=== PATIENT | female | born 1990 | race Caucasian/White ===

== ENCOUNTER 2017-08-10 08:00 | Inpatient (IN) ==
[2017-08-10] MEDS ORDERED: *HR* Nalbuphine 10 MG/ML AMPUL IVP PRN (08:16)
[2017-08-10] MEDS ORDERED: Naloxone 0.4 MG/ML INJ IVP PRN (08:16)
[2017-08-10] MEDS ORDERED: Metoclopramide 10 MG/2 ML VIAL IVP PRN (08:16)
[2017-08-10] MEDS ORDERED: Famotidine 20 MG/2 ML VIAL IVP PRN (08:16)
[2017-08-10] MEDS ORDERED: Oxytocin 20 units/ LR 1000 mL 20 UNIT/1,000 ML BAG IVC SCH ×2 (08:30→18:58)
[2017-08-10] MEDS ORDERED: Ringers Solution, Lactated 1,000 ML IVC SCH (08:30)
[2017-08-10 09:13] LABS: Basophils % 0.5 %; Eosinophils # 0.2 K/mcL (0.0-0.6); Hematocrit 34.2 % (35.3-44.9); Hemoglobin 11.2 g/dL (11.5-15.4); Immature Granulocytes % 0.5 % (0-4); Lymphocytes # 1.6 K/mcL (0.6-4.6); Lymphocytes % 17.9 %; Mean Corpuscular HGB Conc 32.7 g/dL (31.6-35.5); Mean Corpuscular Hemoglobin 25.9 pg (28.0-33.3); Mean Corpuscular Volume 79.2 fL (83.0-100.0); Mean Platelet Volume 10.3 fL (9.4-12.4); Monocytes # 0.8 K/mcL (0.0-1.3); Monocytes % 9.5 %; Platelet Count 221 K/mcL (140-400); Red Blood Count 4.32 M/mcL (3.82-4.97); Red Cell Distribution Width 14.7 % (11.5-14.5); Segmented Neutrophils % 69.6 %
--- NOTE | 2017-08-10 10:27 | OB/GYN History & Physical ---
Date of Encounter: 08/10/17 Time of Encounter: 10:22 Assessment and Plan (1) 40 weeks gestation of Current visit: Yes Status: Acute (2) Elective induction of labor planned Current visit: No Status: Acute Admit to labor and delivery Start Pitocin per policy Nubain and epidural as desired Anticipate History of Present Illness Chief complaint: induction of labor HPI: Ms. Tuttle is a 27 year old female 40+0 presents for induction of labor due to term . Uncomplicated course. Patient on daily baby aspirin for history of miscarriage. Reports good movement, denies vaginal bleeding, leaking of fluid, contractions. Unsure if wants epidural Labs: O+, rubella and varicella immune, GBS negative, all other serologies negative Past Med Surg Social Fam HX - Past Medical History Medical history: no medical history Psychiatric history: no psych history - Past Surgical History Surgical History: other - Social History Smoking Status: Never smoker Smokeless Tobacco Status: No Alcohol use: none Drug use: none - Family History Father Living Status: Still Living Hx Family Medical Disorders: Yes (melanoma) Mother Family Member Ethnicity: Non- Living Status: Still Living Hx Family Cardiac Disorders: No Hx Family Respiratory Disorders: No Hx Family Cancer: No Hx Family GI Disorders: No Hx Family Endocrine Disorder: No Hx Family Neuromuscular Disorders: No Hx Family Neurologic Disorders: No Hx Family HEENT Disorders: No Hx Family Autoimmune Disorders: No Obstetrical History - Pregnancies : 7 Para: 2 Term: 2 : 0 Ab's: 4 Livin Medications and Allergies Aspirin 81 mg PO DAILY 08/02/15 [History] Pnv Plus Multivit Tab 1 tab PO DAILY 08/02/15 [History] 3 Allergy/AdvReac Type Severity Reaction Status Date / Time bacitracin Allergy Rash Verified 11/10/15 09:26 [From Neosporin ([id number])] Neomycin Allergy Rash Verified 11/10/15 09:26 [From Neosporin ([id number])] polymyxin B Allergy Rash Verified 11/10/15 09:26 [From Neosporin ([id number])] Exam - Constitutional Constitutional: well developed, well nourished, no acute distress, average body habitus - Neck Neck exam: full ROM - Lungs Respiratory exam: CTAB - Cardiovascular Cardiovascular exam: RRR - Abdomen Abdomen: Present: gravid, non tender - Extremities Extremities exam: normal capillary refill, normal inspection - Cervix Dilation: 4 Effacement: 90 Station: -1 - Uterus Uterus exam: Present: normal size, normal contour Results Result Diagrams: 08/10/17 08:51 Abnormal lab results Hgb 11.2 g/dL (11.5-15.4) L 08/10/17 08:51 Hct 34.2 % (35.3-44.9) L 08/10/17 08:51 MCV 79.2 fL (83.0-100.0) L 08/10/17 08:51 MCH 25.9 pg (28.0-33.3) L 08/10/17 08:51 RDW 14.7 % (11.5-14.5) H 08/10/17 08:51 All other labs normal. - VTE Reasons for not Prescribing Prophylaxis: Treatment not Indicated - Low risk for VTE
--- NOTE | 2017-08-10 10:57 | Anesthesia Evaluation PreOp ---
Date of Encounter: 08/10/17 Time of Encounter: 10:55 - Past History Planned Operation: ANA Cardiac History: Denies any Significant Hx Pulmonary History: Denies Any Significant HX ANIMAL CARE SUPERVISOR History: Denies Any Significant HX Other Medical History: Denies Any Significant HX Anesthesia History: No Prior Anesthetic Complications (denies h/o NA or GA complications; denies family h/o GA), Past Anesthesia (had ANA w/ previous C/S.) : Yes Test: Positive Alcohol Use: none Drug use: none Medications and Allergies Aspirin 81 mg PO DAILY 08/02/15 [History] Pnv Plus Multivit Tab 1 tab PO DAILY 08/02/15 [History] 3 Allergy/AdvReac Type Severity Reaction Status Date / Time bacitracin Allergy Rash Verified 11/10/15 09:26 [From Neosporin ([id number])] Neomycin Allergy Rash Verified 11/10/15 09:26 [From Neosporin ([id number])] polymyxin B Allergy Rash Verified 11/10/15 09:26 [From Neosporin ([id number])] - Meds/Allergy Pre-op Review Medications Reviewed: Yes Allergies Reviewed: Yes Beta Blockers on Current Med List: No Anesthesia Results - Labs 08/10/17 08:51 Anesthesia Exam O2 Sat Height 1.6 m Height 1.6 m Weight 76.204 kg Weight 76.204 kg NPO (# of Hours): solids > 4 hours Pain Scale: 0 Pain Scale Used: Tesha (Faces) - HEENT Pupil (Motor): Pupils equal Mallampati: II Teeth: Normal Oral Opening: Greater than 3 - ANIMAL CARE SUPERVISOR LOC: Oriented ANIMAL CARE SUPERVISOR Motor: Normal RUE, Normal LUE, Normal RLE, Normal LLE, Normal Face ANIMAL CARE SUPERVISOR Sensory: Normal: RUE, LUE, RLE, LLE, Face - Cardiac Rhythm: Regular Murmur: None - Pulmonary Breath Sounds: bilateral Clear Respiratory Effort: Symmetrical Anesthesia Assess/Plan ASA Score: 2 Modified Dipti Scale for Level of Consciousness: Cooperative, oriented, and tranquil Anesthetic Plan: Regional Autologous Blood: No Monitoring Plan: Standard Monitors Recovery Plan: Other
[2017-08-10] MEDS ORDERED: Bupivacaine-MPF 0.25% 10 ML VIAL EP ONE (11:02)
[2017-08-10] MEDS ORDERED: *HR* FentaNYL (PF) 100 MCG/2 ML VIAL EP ONE (11:02)
[2017-08-10] MEDS ORDERED: Epidural Premix (fent/bupiv) 110 ML EP SCH (11:15)
[2017-08-10] MEDS ORDERED: *HR* FentaNYL (PF) 100 MCG/2 ML VIAL ONE (12:39)
[2017-08-10] MEDS ORDERED: Bupivacaine-MPF 0.25% 10 ML VIAL ONE (12:39)
[2017-08-10] MEDS ORDERED: Epidural Premix (fent/bupiv) 110 ML EP ONE (12:43)
--- NOTE | 2017-08-10 13:14 | Anesthesia Procedures ---
Date of Encounter: 08/10/17 Time of Encounter: 13:11 Procedures: Anesthesia - Epidural/Spinal Patient ID/Chart reviewed: Yes Patient examined: Yes OB Eval: Gestational age: 40 weeks OB Eval: : 7 OB Eval: Hx Para: 2 OB Eval: Dilated at (cm): 4 OB Eval: Contractions: Non-stressed pattern Consent Obtained: Yes Supplemental Oxygen: None/Room Air Site Prep: Aseptic Technique, Sterile prep and drape, Povidone-Iodine 1% Patient position: upright Local Anesthetic: Lidocaine 1% Amount of Local Anesthetic used: 3 Touhy Needle Gauge: 18 Touhy Needle Depth (cm): 4 Catheter Depth at Skin (cm): 9 Test Dose (1.5% Lido + Epi): Volume given (mls): 5 Test Dose Result: Negative Loading Dose: 0.25% Marcaine (mls): 5 Loading Dose: Fentanyl (mcg): 100 Loading Dose Administered: Thru Catheter Infusion Med: 0.125% Bupivacaine w/ 2 mcg/ml Fentanyl Infusion Rate (mls/hr): 14 (given in 2 divided doses over a period of 5 min) Catheter Secured in Place: Tegaderm, Tape Interspace Used: L3-L4 Loss of Resistance (PHYLICIA): Yes Blood: No CSF: No Paresthesia: No Procedure: successful on 1st attempt. pt tolerated well Vitals + FHT's: please see Sue LISA's electronic records for VS entry
--- NOTE | 2017-08-10 14:17 | OB Labor Progress Note ---
Date of Encounter: 08/10/17 Time of Encounter: 14:16 Labor Progress Note - Subjective Subjective: Pt comfortable with epidural - Cervix Cervix: 6/100/-1 - Heart Tones Heart Tones: 125/moderate/+accels/-decels - [employer]: q2-3 - Interventions Interventions: AROM for clear fluid - Plan Plan: Continue pitocin per policy Frequent repositioning anticipate
--- NOTE | 2017-08-10 15:22 | OB/GYN Procedure Note ---
Delivery - Delivery Date: 08/10/17 Provider: Jia Pool Intrapartum events: none Delivery induction: AROM, oxytocin Delivery monitor: external FHT, external uterine Anesthesia: epidural Estimated Blood Loss: 300 - (s) A Delivery Date: 08/10/17 Infant Delivery Time: 15:05 Presentation: vertex Position: OA Route of delivery: Gender: Male Viability: Viable Pounds: 8 Ounces: 6 Weight Gram: 3800 kg at 1 minute: 2 at 5 mins: 9 Shoulder Dystocia: not encountered Specimens collected: cord blood, venous cord gases, arterial cord gases Placenta: spontaneous Cord: nuchal cord - Repair Episiotomy: none Laceration Description: None - Complications Delivery complications: none Delivery comments: Induction of labor for term gestation, progressed to complete, maternal bearing down efforts to of liveborn male. Vertex delivered OA, nuchal cord identified in reduced, shoulders and body easily followed. No shoulder dystocia encountered. Limp infant placed on maternal abdomen, cord clamped and cut and taken to radiant warmer for resuscitative measures. Apgars 2/9. Cord gases obtained Placenta delivered spontaneously (Taj), fundus massaged until firm, Pitocin started per policy perineum intact. EBL 300. There and infant left bonding in labor and delivery in stable condition - Disposition Mom disposition: stable in LDR Kempner disposition: stable in LDR
[2017-08-10] MEDS ORDERED: Lanolin 7 G OINT...G. TP PRN (18:58)
[2017-08-10] MEDS ORDERED: Acetaminophen 325 MG TABLET PO PRN (18:58)
[2017-08-10] MEDS ORDERED: Benzocaine/Menthol 56 GM AEROSOL SPRAY TP PRN (18:58)
[2017-08-11] MEDS: Ibuprofen 600 MG TABLET PO PRN ×2 (01:39→10:06)
[2017-08-11 04:36] LABS: Basophils # 0.1 K/mcL (0.0-0.2); Basophils % 0.4 %; Eosinophils # 0.2 K/mcL (0.0-0.6); Eosinophils % 1.5 %; Hematocrit 36.8 % (35.3-44.9); Hemoglobin 11.4 g/dL (11.5-15.4); Immature Granulocytes % 0.6 % (0-4); Lymphocytes # 1.9 K/mcL (0.6-4.6); Lymphocytes % 13.5 %; Mean Corpuscular Hemoglobin 25.1 pg (28.0-33.3); Mean Corpuscular Volume 80.9 fL (83.0-100.0); Mean Platelet Volume 10.7 fL (9.4-12.4); Monocytes # 1.4 K/mcL (0.0-1.3); Neutrophils # 10.5 K/mcL (1.6-8.9); Platelet Count 224 K/mcL (140-400); Red Blood Count 4.55 M/mcL (3.82-4.97); Red Cell Distribution Width 14.9 % (11.5-14.5)
[2017-08-11 08:09] VITALS: BP 118/78
[2017-08-11] MEDS ORDERED: Prenatal Vit/FA 1 EACH TABLET PO SCH (09:00)
--- NOTE | 2017-08-11 09:49 | Discharge Summary ---
Date of Encounter: 08/11/17 Time of Encounter: 09:44 - Discharge Diagnosis (1) Vaginal delivery Priority: Primary Status: Acute Comments: S/P vaginal delivery Day 1.Pain well controlled with po meds. Ambulating and voiding without difficulty. Tolerating regular diet. Passing gas, states had small BM with no problem. Reports small hemorrhoid that is effectively treated with cream at home. Infant in room, reports well. Lochia light, without clots. Desires to go home today - Discharge Medications Prescriptions: Ibuprofen [Motrin] 600 mg PO Q6HR PRN #30 tablet PRN Reason: Cramping Docusate [Colace] 100 mg PO BID #20 capsule Ferrous Sulfate 325 mg PO DAILY #30 tablet Home Medications: Pnv Plus Multivit Tab 1 tab PO DAILY 08/02/15 [History] Acetaminophen [Tylenol] 650 mg PO Q6HR PRN tablet 08/11/17 [Rx] Benzocaine/Menthol Bennett [Dermoplast Bennett] 1 appl TP QID PRN aerosol 08/11/17 [Rx] Docusate [Colace] 100 mg PO BID #20 capsule 08/11/17 [Rx] Ferrous Sulfate 325 mg PO DAILY #30 tablet 08/11/17 [Rx] Ibuprofen [Motrin] 600 mg PO Q6HR PRN #30 tablet 08/11/17 [Rx] Lanolin [Lansinoh] 1 appl TP QID PRN oint...g. 08/11/17 [Rx] Allergies/Adverse Reactions: 3 Allergy/AdvReac Type Severity Reaction Status Date / Time bacitracin Allergy Rash Verified 11/10/15 09:26 [From Neosporin ([id number])] Neomycin Allergy Rash Verified 11/10/15 09:26 [From Neosporin ([id number])] polymyxin B Allergy Rash Verified 11/10/15 09:26 [From Neosporin ([id number])] Data Procedures and tests throughout hospitalization: Laboratory Tests 08/10/17 08/11/17 08:51 04:16 WBC 8.7 14.2 H D RBC 4.32 4.55 Hgb 11.2 L 11.4 L Hct 34.2 L 36.8 MCV 79.2 L 80.9 L MCH 25.9 L 25.1 L MCHC 32.7 31.0 L RDW 14.7 H 14.9 H Plt Count 221 224 MPV 10.3 10.7 Immature Gran % 0.5 0.6 Seg Neutrophils % 69.6 74.0 Lymphocytes % 17.9 13.5 Monocytes % 9.5 10.0 Eosinophils % 2.0 1.5 Basophils % 0.5 0.4 Neutrophils # 6.0 10.5 H Lymphocytes # 1.6 1.9 Monocytes # 0.8 1.4 H Eosinophils # 0.2 0.2 Basophils # 0.0 0.1 Labs on day of discharge: Labs from last 24 hours 08/11/17 04:16 WBC 14.2 H D RBC 4.55 Hgb 11.4 L Hct 36.8 MCV 80.9 L MCH 25.1 L MCHC 31.0 L RDW 14.9 H Plt Count 224 MPV 10.7 Immature Gran % 0.6 Seg Neutrophils % 74.0 Lymphocytes % 13.5 Monocytes % 10.0 Eosinophils % 1.5 Basophils % 0.4 Neutrophils # 10.5 H Lymphocytes # 1.9 Monocytes # 1.4 H Eosinophils # 0.2 Basophils # 0.1 Date of admission: 08/10/17 08:09 Primary care physician: PCP NONE Consults: 08/10/17 18:58 Consult to Test Clerk [CONS] Routine Comment: Vaginal delivery, consult needed Discharging clinician: Sabrina Fernandez - Patient Status Disposition: Home, Self-Care Condition: Good Functional capacity at discharge: independent ambulation Overall status at discharge: patient is progressing back to baseline - Discharge Instructions Follow Up With: NONE,PCP [Primary Care Provider] - Sarah Burden MD [Partnered Physician] - - Diet and Activity Activity: resume usual activities as tolerated Diet: advance to your usual diet Hospital Course Episiotomy: none Time Attestation: Total time spent providing and/or coordinating discharge services: Exam - Constitutional Vitals: Temp Pulse Resp BP Pulse Ox 97.7 F 60 16 118/78 95 08/11/17 08:08 08/11/17 08:08 08/11/17 08:08 08/11/17 08:08 08/11/17 04:20 General appearance IM: cooperative, A&O X 3, pleasant, no acute distress, answers questions appropriately - Respiratory Respiratory exam: Present: CTAB - Cardiovascular Cardiovascular exam IM: Present: RRR - GI/Abdominal GI/Abdominal exam IM: normal bowel sounds, soft, tenderness - Rectal Rectal exam: deferred - Uterine Tone: Firm Uterus Position: 1 Finger Below Umbilicus, Midline - Neurological Exam Neurological exam: alert, normal gait, oriented X3
== END 2017-08-11 17:00 | disposition home or self-care (01) | DRG 775 ==
LOC: 1NENULAB 08:09 → 1NENUOBS 17:42
PROVIDERS: ADMIT Advanced Practice Midwife; ATTEND Advanced Practice Midwife

== ENCOUNTER 2018-08-29 10:18 | Observation (INO) ==
[2018-08-29] MEDS ORDERED: Famotidine 20 MG/2 ML VIAL IVP ONE (11:02)
[2018-08-29] MEDS ORDERED: Metoclopramide 10 MG/2 ML VIAL IVP ONE (11:03)
[2018-08-29] MEDS ORDERED: Ringers Solution, Lactated 1,000 ML ONE (11:12)
[2018-08-29] MEDS ORDERED: Ringers Solution, Lactated 1,000 ML IVC SCH ×2 (11:15→11:45)
[2018-08-29 11:17] LABS: Hematocrit 39.5 % (35.3-44.9); Hemoglobin 13.3 g/dL (11.5-15.4); Mean Corpuscular HGB Conc 33.7 g/dL (31.6-35.5); Mean Corpuscular Hemoglobin 28.4 pg (28.0-33.3); Mean Corpuscular Volume 84.2 fL (83.0-100.0); Mean Platelet Volume 9.8 fL (9.4-12.4); Platelet Count 247 K/mcL (140-400); Red Blood Count 4.69 M/mcL (3.82-4.97)
[2018-08-29 11:28] LABS: Amphetamine Screen,Urine Negative ng/mL (Cutoff=1000); Barbiturate Screen,Urine Negative ng/mL (Cutoff=200); Benzodiazepines Screen,Urine Negative ng/mL (Cutoff=200); Cannabinoid Screen,Urine Negative ng/mL (Cutoff = 50); Cocaine Screen,Urine Negative ng/mL (Cutoff= 300); Opiate Screen,Urine Negative ng/mL (Cutoff=300); Phencyclidine Screen,Urine Negative ng/mL (Cutoff=25)
[2018-08-29] MEDS ORDERED: *HR* HYDROmorphone (PF) 1 MG/ML SYRINGE IVP PRN (11:38)
[2018-08-29] MEDS ORDERED: Dexamethasone 4 MG/ML VIAL IVP ONE (11:38)
[2018-08-29] MEDS ORDERED: *HR* OxyCODONE Immed Rel 5 MG TABLET PO PRN (11:38)
[2018-08-29] MEDS ORDERED: Ondansetron 4 MG/2 ML VIAL IVP ONE (11:38)
[2018-08-29] MEDS ORDERED: *HR* Meperidine 25 MG/ML SYRINGE IVP PRN (11:38)
--- NOTE | 2018-08-29 11:41 | Anesthesia Evaluation PreOp ---
Date of Encounter: 08/29/18 Time of Encounter: 11:39 - Past History Planned Operation: D&C Cardiac History: Denies any Significant Hx Pulmonary History: Denies Any Significant HX FLOSSER History: Denies Any Significant HX Other Medical History: Denies Any Significant HX Anesthesia History: No Prior Anesthetic Complications (denies personal and family h/o GA complications), Past Anesthesia (D&C, ruptured ectopic ) : Yes Alcohol Use: none Drug use: none Medications and Allergies Pnv Plus Multivit Tab 1 tab PO DAILY 08/02/15 [History] Aspirin [Lo-Dose Aspirin EC] 81 mg PO DAILY 08/29/18 [History] Allergy/AdvReac Type Severity Reaction Status Date / Time bacitracin Allergy Rash Verified 11/10/15 09:26 [From Neosporin ([id number])] Neomycin Allergy Rash Verified 11/10/15 09:26 [From Neosporin ([id number]-[id number])] polymyxin B Allergy Rash Verified 11/10/15 09:26 [From Neosporin ([id number]-[id number])] - Meds/Allergy Pre-op Review Medications Reviewed: Yes Allergies Reviewed: Yes Beta Blockers on Current Med List: No Anesthesia Results - Labs 08/29/18 11:13 Anesthesia Exam 106/64, HR 83, RR 18 O2 Sat Height 1.6 m Weight 58.8 kg NPO (# of Hours): > 8hrs Pain Scale: 0 Pain Scale Used: Numeric (1 - 10) - HEENT Pupil (Motor): Pupils equal Mallampati: II Teeth: Normal Oral Opening: Greater than 3 - FLOSSER LOC: Oriented FLOSSER Motor: Normal RUE, Normal LUE, Normal RLE, Normal LLE, Normal Face FLOSSER Sensory: Normal: RUE, LUE, RLE, LLE, Face - Cardiac Rhythm: Regular Murmur: None - Pulmonary Breath Sounds: bilateral Clear Respiratory Effort: Symmetrical Anesthesia Assess/Plan ASA Score: 2 Level of consciousness: Cooperative, Oriented, Tranquil Anesthetic Plan: General Autologous Blood: No Monitoring Plan: Standard Monitors Recovery Plan: PACU
[2018-08-29] MEDS ORDERED: *HR* Midazolam HCl 2 MG/2 ML VIAL ONE (11:44)
[2018-08-29] MEDS ORDERED: Ondansetron 4 MG/2 ML VIAL ONE (11:44)
[2018-08-29] MEDS ORDERED: Dexamethasone 4 MG/ML VIAL ONE (11:44)
[2018-08-29] MEDS ORDERED: *HR* Propofol 200 MG/20 ML VIAL IVP ONE (11:44)
[2018-08-29] MEDS ORDERED: *HR* FentaNYL (PF) 100 MCG/2 ML VIAL ONE (11:44)
[2018-08-29] MEDS ORDERED: Lidocaine -MPF 2% 5 ML VIAL ONE (11:44)
--- NOTE | 2018-08-29 13:01 | History & Physical Report ---
Date of Encounter: 08/29/18 Time of Encounter: 13:00 24 Hour HP Update - Instructions Instructions: If the History and Physical is less than 30 days old and was completed prior to A.M. admission and or procedure and has NOT been updated on calendar day of procedure please complete this update prior to performing procedure. - Update Patient reports changes in Medical Condition: No Changes in examination, assessment, or condition: No Changes in Medication: No Preop tests/diagnostics Reviewed: Yes Pre-Op MRSA Screen: Negative Surgery Remains Indicated: Yes Consent for Planned Operative Procedure(s) Verified: Yes - Pre-Operative Checklist Preoperative Checklist Indicated: Yes Prophylactic Antibiotic Ordered: No Home Medications Include Beta Anthony: No Beta Anthony Taken Today (Day of Surgery): No Beta Anthony Taken Yesterday (Day Prior to Surgery): No Is VTE Prophylaxis Indicated?: Yes
[2018-08-29] MEDS ORDERED: Ketorolac 30 MG/ML VIAL ONE (13:31)
--- NOTE | 2018-08-29 13:33 | OB/GYN Procedure Note ---
Suction D&C - Diagnosis Date of procedure: 08/29/18 Pre-op diagnosis: missed Post-op diagnosis: same - Procedure Procedure: suction D&C Surgeon: Kiara Ramírez Was there an car rental sales assistant present: No Anesthesia provider: Jefry Rangel Anesthesia Type: General Estimated blood loss (cc): 50 Complications: none Specimen: products of conception Disposition: no change Narrative: Diagnosis: Missed 6 weeks 0 day Postoperative diagnosis: Same Surgeon: Dr. Kiara Ramírez Anesthesia: Gen. Complications: None Estimated blood loss 50 mL Specimens: Products of conception Patient was taken to the operating room and underwent general anesthesia. She has dropped and draped in usual sterile fashion. A weighted speculum was placed within the vaginal vault. Cervix is grasped with single-tooth tenaculum. Uterine cervix was sounded to 9 cm in size. Uterine cervix was gently dilated without difficulty. Intrauterine products of conception were gently removed using a combination of suction and sharp curettage. At the end of the procedure the uterine cry was noted throughout the uterine cavity. Uterus remained firm. Specimens were collected and sent to pathology. We have minimal blood loss. She was given intraoperative Methergine and Toradol. All instruments removed from the vaginal vault. Uterus was firm. Sponge lap needle and strength counts were correct 2. Patient was awakened taken to the postanesthesia care unit. Again we had no interoperative complications.
[2018-08-29 14:42] VITALS: BP 108/73
--- NOTE | 2018-08-29 15:01 | Anesthesia Evaluation Post Op ---
Date of Encounter: 08/29/18 Time of Encounter: 15:00 - Vital Signs Vital Signs: 100/70, HR 95, SpO2 96%, RR 20 - Lungs Lungs: Clear Ascult./Percussion - Airway Airway: Non-obstructed - Cardiovascular Regular Rate - Mental Status Mental Status: Alert & Oriented, Answers Appropriately - Pain Pain Scale: 2 Pain Scale used: Numeric (1 - 10) - Nausea Vomiting Nausea Vomiting: Not Present - Hydration Hydration: Tolerates oral liquids, Has not voided - Discharge PostOp Status: Discharge Patient to home
[2018-08-29] MEDS ORDERED: Methylergonovine 0.2 MG/ML AMPUL IM ONE (15:48)
[2018-08-30] MEDS ORDERED: Aspirin Enteric Coated 81 MG Tablet PO SCH (09:00)
[2018-08-30] MEDS ORDERED: Prenatal Vit/FA 1 EACH TABLET PO SCH (09:00)
== END 2018-08-29 15:49 | disposition home or self-care (01) ==
LOC: 1NENULAB 10:18 → SAMDAY 10:18
PROVIDERS: ADMIT Obstetrics & Gynecology; ATTEND Obstetrics & Gynecology

== ENCOUNTER 2019-10-23 18:00 | Observation (INO) ==
[2019-10-23 11:19] LABS: Basophils % 0.4 %; Eosinophils # 0.1 K/mcL (0.0-0.6); Eosinophils % 1.1 %; Hematocrit 33.4 % (35.3-44.9); Hemoglobin 11.1 g/dL (11.5-15.4); Immature Granulocytes % 1.1 % (0-4); Lymphocytes # 1.3 K/mcL (0.6-4.6); Lymphocytes % 14.9 %; Mean Corpuscular HGB Conc 33.2 g/dL (31.6-35.5); Mean Corpuscular Hemoglobin 28.1 pg (28.0-33.3); Mean Corpuscular Volume 84.6 fL (83.0-100.0); Mean Platelet Volume 10.1 fL (9.4-12.4); Monocytes # 0.9 K/mcL (0.0-1.3); Monocytes % 9.6 %; Neutrophils # 6.5 K/mcL (1.6-8.9); Platelet Count 194 K/mcL (140-400); Red Blood Count 3.95 M/mcL (3.82-4.97); Red Cell Distribution Width 13.6 % (11.5-14.5); Segmented Neutrophils % 72.9 %; White Blood Count 8.9 K/mcL (4.3-11.1)
[2019-10-23 11:26] LABS: Prothrombin Time 11.9 Seconds (9.4-12.1)
[2019-10-23 11:28] LABS: Activated Partial Thrombo Time 25.8 Seconds (26.0-36.0)
[2019-10-23 11:31] LABS: Bacteria,Urine Few per hpf (None-Few); Bilirubin,Urine Negative (Negative); Blood,Urine Moderate (Negative); Clarity,Urine Turbid (Clear); Color,Urine Light-Yellow (Yellow); Glucose,Urine (UA) Normal (Normal); Ketones,Urine Negative (Negative); Leukocyte Esterase,Urine Negative (Negative); Nitrite,Urine Negative (Negative); Protein,Urine Trace mg/dL (Neg-Trace); Specific Gravity,Urine 1.009 (1.010-1.025); Squamous Epithelial Cell,Urine Few per hpf (None-Few); Urobilinogen,Urine Normal (Normal)
[2019-10-23 12:06] VITALS: BP 117/75
[~2019-10-23 18:00] MED LIST: Ringers Solution, Lactated 1,000 ML IVC SCH
[2019-10-24 05:18] LABS: Basophils % 0.3 %; Eosinophils # 0.2 K/mcL (0.0-0.6); Eosinophils % 2.2 %; Hematocrit 31.7 % (35.3-44.9); Hemoglobin 10.4 g/dL (11.5-15.4); Immature Granulocytes % 1.1 % (0-4); Lymphocytes # 1.9 K/mcL (0.6-4.6); Lymphocytes % 21.6 %; Mean Corpuscular HGB Conc 32.8 g/dL (31.6-35.5); Mean Corpuscular Volume 88.3 fL (83.0-100.0); Mean Platelet Volume 10.5 fL (9.4-12.4); Monocytes # 0.9 K/mcL (0.0-1.3); Monocytes % 9.5 %; Neutrophils # 5.9 K/mcL (1.6-8.9); Platelet Count 190 K/mcL (140-400); Red Blood Count 3.59 M/mcL (3.82-4.97); Red Cell Distribution Width 13.9 % (11.5-14.5); Segmented Neutrophils % 65.3 %
== END 2019-10-24 09:30 | disposition home or self-care (01) ==
LOC: 1NENULAB
PROVIDERS: ADMIT Obstetrics & Gynecology; ATTEND Obstetrics & Gynecology

== ENCOUNTER 2019-12-27 10:43 | Inpatient (IN) ==
[~2019-12-27 10:43] MED LIST changes: +*HR* FentaNYL (PF) 100 MCG/2 ML VIAL IVP PRN; +Azithromycin 500 MG in 0.9 % Sodium Chloride 250 ML IVPB ONE; +Famotidine 20 MG/2 ML VIAL IVP PRN; +Metoclopramide 10 MG/2 ML VIAL IVP PRN; +Naloxone 0.4 MG/ML INJ IVP PRN; +Ondansetron 4 MG/2 ML VIAL IVP PRN; -Ringers Solution, Lactated 1,000 ML IVC SCH
[2019-12-27] MEDS ORDERED: FLU Vac QV HD 20-21 (65YR+)/PF 0.7 ML SYRINGE IM ONE (11:00)
[2019-12-27] MEDS ORDERED: Oxytocin 20 units/ LR 1000 mL 20 UNIT/1,000 ML BAG IVC SCH ×2 (11:15→22:40)
[2019-12-27 11:32] LABS: Basophils % 0.4 %; Eosinophils # 0.1 K/mcL (0.0-0.6); Eosinophils % 0.9 %; Hemoglobin 11.2 g/dL (11.5-15.4); Immature Granulocytes % 0.9 % (0-4); Lymphocytes % 18.7 %; Mean Corpuscular Volume 81.4 fL (83.0-100.0); Mean Platelet Volume 10.4 fL (9.4-12.4); Monocytes # 0.7 K/mcL (0.0-1.3); Monocytes % 12.4 %; Neutrophils # 3.6 K/mcL (1.6-8.9); Platelet Count 188 K/mcL (140-400); Red Cell Distribution Width 15.2 % (11.5-14.5); Segmented Neutrophils % 66.7 %; White Blood Count 5.3 K/mcL (4.3-11.1)
[2019-12-27 11:35] LABS: Amphetamine Screen,Urine Negative ng/mL (Cutoff=1000); Barbiturate Screen,Urine Negative ng/mL (Cutoff=200); Benzodiazepines Screen,Urine Negative ng/mL (Cutoff=200); Cannabinoid Screen,Urine Negative ng/mL (Cutoff = 50); Cocaine Screen,Urine Negative ng/mL (Cutoff= 300); Opiate Screen,Urine Negative ng/mL (Cutoff=300); Phencyclidine Screen,Urine Negative ng/mL (Cutoff=25)
[2019-12-27] MEDS ORDERED: FLU Vac QV 20-21 (6Month+)/PF 0.5 ML SYRINGE IM ONE (11:40)
[2019-12-27] MEDS: Ringers Solution, Lactated 1,000 ML IVC SCH ×2 (11:50→14:40)
[2019-12-27] MEDS ORDERED: *HR* FentaNYL (PF) 100 MCG/2 ML VIAL EP ONE (12:37)
[2019-12-27] MEDS ORDERED: EPHEDrine 50 MG/ML VIAL IVP PRN (12:37)
[2019-12-27] MEDS ORDERED: *HR* FentaNYL (PF) 100 MCG/2 ML VIAL ONE (12:44)
[2019-12-27] MEDS ORDERED: Epidural Premix (fent/bupiv) 110 ML EP SCH (12:45)
[2019-12-27] MEDS ORDERED: Methylergonovine 0.2 MG/ML AMPUL IM ONE (20:59)
[2019-12-27] MEDS ORDERED: Lanolin 7 G OINT...G. TP PRN (22:40)
[2019-12-27] MEDS ORDERED: Acetaminophen 325 MG TABLET PO PRN (22:40)
[2019-12-27] MEDS: Ibuprofen 600 MG TABLET PO PRN (23:40)
[2019-12-28] MEDS: Ibuprofen 600 MG TABLET PO PRN ×2 (08:13→15:49)
[2019-12-28] MEDS ORDERED: Prenatal Vit/FA 1 EACH TABLET PO SCH (09:00)
[2019-12-28 17:02] VITALS: BP 116/77
== END 2019-12-28 21:00 | disposition home or self-care (01) | DRG 807 ==
LOC: 1NENULAB → 1NENUOBS 12-28 01:51
PROVIDERS: ADMIT Obstetrics & Gynecology; ATTEND Obstetrics & Gynecology

== ENCOUNTER 2021-09-10 10:06 | Inpatient (IN) ==
[2021-09-10] MEDS ORDERED: Metoclopramide 10 MG/2 ML VIAL IVP PRN ×2 (10:22→21:56)
[2021-09-10] MEDS ORDERED: Famotidine 20 MG/2 ML VIAL IVP PRN ×2 (10:22→21:56)
[2021-09-10] MEDS ORDERED: Naloxone 0.4 MG/ML INJ IVP PRN ×2 (10:22→21:56)
[2021-09-10] MEDS ORDERED: Penicillin G Potassium 5,000,000 UNIT in 0.9 % Sodium Chloride Mini Bag 100 ML IVPB ONE (10:24)
[2021-09-10] MEDS ORDERED: Ringers Solution, Lactated 1,000 ML IVC SCH ×2 (10:30→21:56)
[2021-09-10 11:15] LABS: Basophils % 0.2 %; Eosinophils # 0.1 K/mcL (0.0-0.6); Eosinophils % 0.7 %; Hematocrit 33.5 % (35.3-44.9); Hemoglobin 10.6 g/dL (11.5-15.4); Immature Granulocytes % 0.4 % (0-4); Lymphocytes # 1.3 K/mcL (0.6-4.6); Lymphocytes % 14.3 %; Mean Corpuscular HGB Conc 31.6 g/dL (31.6-35.5); Mean Corpuscular Hemoglobin 24.9 pg (28.0-33.3); Mean Corpuscular Volume 78.8 fL (83.0-100.0); Mean Platelet Volume 10.4 fL (9.4-12.4); Monocytes # 0.7 K/mcL (0.0-1.3); Monocytes % 7.9 %; Neutrophils # 6.9 K/mcL (1.6-8.9); Platelet Count 213 K/mcL (140-400); Red Blood Count 4.25 M/mcL (3.82-4.97); Red Cell Distribution Width 15.9 % (11.5-14.5); Segmented Neutrophils % 76.5 %
[2021-09-10 11:24] LABS: Amphetamine Screen,Urine Negative ng/mL (Cutoff=1000); Barbiturate Screen,Urine Negative ng/mL (Cutoff=200); Benzodiazepines Screen,Urine Negative ng/mL (Cutoff=200); Cannabinoid Screen,Urine Negative ng/mL (Cutoff = 50); Cocaine Screen,Urine Negative ng/mL (Cutoff= 300); Opiate Screen,Urine Negative ng/mL (Cutoff=300); Phencyclidine Screen,Urine Negative ng/mL (Cutoff=25)
[2021-09-10 11:49] LABS: Influenza A PCR Negative (Negative); Influenza B PCR Negative (Negative); Resp. Syncytial Virus PCR Negative (Negative); SARS-CoV-2 by PCR (In House) Negative (Negative)
[2021-09-10] MEDS ORDERED: Oxytocin 30 UNIT/503 ML BAG IVC SCH ×4 (12:00→21:56)
[2021-09-10] MEDS ORDERED: EPHEDrine 50 MG/ML VIAL IVP PRN ×2 (13:24→21:56)
[2021-09-10] MEDS ORDERED: Epidural Premix (fent/bupiv) 110 ML EP SCH ×2 (13:30→21:56)
[2021-09-10] MEDS ORDERED: Penicillin G Potassium 2,500,000 UNIT/105 ML MLS IVPB SCH (14:30)
[2021-09-10] MEDS ORDERED: Measles/Mumps/Rubella Vacc 0.5 ML VIAL SQ PRN ×2 (19:44→21:56)
[2021-09-10] MEDS ORDERED: Benzocaine/Menthol 56 GM AEROSOL SPRAY TP PRN ×2 (19:44→21:56)
[2021-09-10] MEDS ORDERED: Rho Immune Globulin 1,500 UNIT SYRINGE IM PRN ×2 (19:44→21:56)
[2021-09-10] MEDS ORDERED: OXYTOCIN/RINGERS LACTATE 10 UNIT/166.6 ML BAG IVC ONE ×2 (19:44→21:56)
[2021-09-10] MEDS ORDERED: Ondansetron ODT 4 MG TAB.RAPDIS SL PRN ×2 (19:44→21:56)
[2021-09-10] MEDS ORDERED: Lanolin 7 G OINT...G. TP PRN ×2 (19:44→21:56)
[2021-09-10] MEDS ORDERED: Acetaminophen 325 MG TABLET PO SCH (19:45)
[2021-09-10] MEDS ORDERED: Ibuprofen 600 MG TABLET PO ONE (19:45)
[2021-09-10] MEDS ORDERED: Ibuprofen 600 MG TABLET PO STA (19:55)
[2021-09-10] MEDS ORDERED: Ibuprofen 600 MG TABLET PO SCH (22:44)
[2021-09-11] MEDS: Ibuprofen 600 MG TABLET PO SCH ×3 (03:39→16:24)
[2021-09-11] MEDS: Acetaminophen 325 MG TABLET PO SCH ×4 (03:40→19:32)
[2021-09-11] MEDS ORDERED: Prenatal Vit/FA 1 EACH TABLET PO SCH ×2 (09:00)
[2021-09-11 15:34] VITALS: BP 111/72; PULSE 60; TEMP 97.4; O2SAT 99
== END 2021-09-11 20:28 | disposition home or self-care (01) | DRG 807 ==
LOC: 1NENULAB 10:06 → 1NENUOBS 21:40
PROVIDERS: ADMIT Obstetrics & Gynecology; ATTEND Obstetrics & Gynecology